=== PATIENT | female | born 1945 | race Hispanic/Latino ===

== ENCOUNTER 2017-05-03 06:15 | Day surgery (SDC) | payer MEDICARE, OTHER ==
[2017-04-25 08:34] VITALS: BMI 30.2
[2017-05-03] MEDS ORDERED: Propofol 10 mg/ml Inj (20 ML) ONE ×2 (08:04→08:39)
[2017-05-03] MEDS ORDERED: Etomidate 20 mg/10ml Inj IV ONE (08:05)
[2017-05-03] MEDS ORDERED: Sodium Chloride 0.9% 1,000 ML IV SCH (09:15)
[2017-05-03 10:45] VITALS: BP 133/81; PULSE 74; RESP 14; TEMP 97.5; O2SAT 97
== END 2017-05-03 10:54 | disposition home or self-care (01) ==
LOC: ENDO 06:15
PROVIDERS: ATTEND Internal Medicine
DX: D12.2 Benign neoplasm of ascending colon (principal); D12.3 Benign neoplasm of transverse colon; K63.5 Polyp of colon; K57.30 Diverticulosis of large intestine without perforation or abscess without bleeding; K64.8 Other hemorrhoids; R19.5 Other fecal abnormalities; I10 Essential (primary) hypertension; I25.10 Atherosclerotic heart disease of native coronary artery without angina pectoris; E78.5 Hyperlipidemia, unspecified; E03.9 Hypothyroidism, unspecified
CPT/HCPCS: 45380; 88305; J2704; J3010; J7040 ×2